=== PATIENT | female | born 1985 | race Hispanic/Latino ===

== ENCOUNTER 2022-09-14 20:59 | Emergency (ER) | payer BC ==
[2022-09-14] MEDS ORDERED: Acetaminophen 500 MG TAB ONE (21:52)
[2022-09-14 23:06] LABS: SARS-CoV-2 NAA Rapid Test Not Detected (NotDetected)
== END 2022-09-14 23:00 | disposition home or self-care (01) ==
LOC: CSHERS 20:59
DX: J06.9 Acute upper respiratory infection, unspecified (principal); Z20.822 Contact with and (suspected) exposure to COVID-19
CPT/HCPCS: 99283